=== PATIENT | male | born 1975 | race Two or more races ===

== ENCOUNTER 2023-04-26 13:04 | Outpatient (CLI) | payer OTHER | END 2023-04-26 13:19 | disposition home or self-care (01) | LOC: SONOGRAMA 13:04 | PROVIDERS: ATTEND Specialist | DX: R22.31 Localized swelling, mass and lump, right upper limb (principal) ==

== ENCOUNTER 2023-05-03 12:19 | Outpatient (CLI) | payer OTHER | END 2023-05-03 12:21 | disposition home or self-care (01) | LOC: SONOGRAMA 12:19 | PROVIDERS: ATTEND Pathology Anatomic Pathology & Clinical Pathology | DX: D47.Z9 Other specified neoplasms of uncertain behavior of lymphoid, hematopoietic and related tissue (principal) ==

== ENCOUNTER 2023-06-02 09:23 | Outpatient (CLI) | payer OTHER ==
[2023-06-02 10:27] LABS: HEMATOCRIT 44.7 % (39.0-48.0); HEMOGLOBIN 14.5 g/dL (13-16.00); MEAN CELL VOLUME 83.3 fL (80.0-100.00); MEAN CORPUSCULAR HGB CONC 32.4 g/dl (32.0-36.0); PLATELET COUNT 253 K/uL (150-450); RED BLOOD COUNT 5.36 M/uL (4.00-6.00); RED CELL DISTRIBUTION WIDTH 15.5 % (11.5-14.5)
[2023-06-02 10:36] LABS: ERYTHROCYTE SEDIMENTATION RATE 1 mm/hr
[2023-06-02 11:36] LABS: ALBUMIN 3.8 gm/dL (3.4-5.0); ALKALINE PHOSPHATASE 40 U/L (50-136); ALT/SGPT 27 U/L (12-78); AST/SGOT 10 U/L (15-37); BILIRUBIN TOTAL 0.62 mg/dL (0.3-1.2); BLOOD UREA NITROGEN 15 mg/dL (7-18); BUN CREA RATIO 13 (7.0-25.0); CALCIUM 9.5 mg/dL (8.5-10.1); CARBON DIOXIDE 32 mEq/L (21-32); CHLORIDE 104 mmol/L (98-107); CREATININE SERUM 1.13 mg/dL (0.70-1.30); GFR 69.26; GLOBULINA 3.2 G/DL (2.4-3.5); GLUCOSE FASTING 104 mg/dL (65-100); OSMOLALITY SERUM 277 MOSM/KG (275-295); POTASSIUM 4.24 mEq/L (3.5-5.1); SODIUM 138 mmol/L (136-145)
== END 2023-06-02 09:29 | disposition home or self-care (01) ==
LOC: LAB 09:23
PROVIDERS: ATTEND Internal Medicine Hematology & Oncology
DX: D64.9 Anemia, unspecified (principal); C88.8 Other malignant immunoproliferative diseases; D70.8 Other neutropenia; R74.01 Elevation of levels of liver transaminase levels

== ENCOUNTER → 2023-06-21 08:35 | Outpatient (CLI) | payer OTHER ==
[2023-06-21 09:23] LABS: HEMATOCRIT 27.6 % (39.0-48.0); MEAN CELL VOLUME 80.7 fL (80.0-100.00); MEAN CORPUSCULAR HGB CONC 32.7 g/dl (32.0-36.0); PLATELET COUNT 418 K/uL (150-450); RED BLOOD COUNT 3.42 M/uL (4.00-6.00); RED CELL DISTRIBUTION WIDTH 15.8 % (11.5-14.5)
[2023-06-21 09:25] LABS: MEAN CORPUSCULAR HEMOGLOBIN 26.3 pg (27.00-32.0)
== END | disposition home or self-care (01) ==
LOC: LAB 08:35
PROVIDERS: ATTEND Internal Medicine Hematology & Oncology
DX: D61.82 Myelophthisis (principal)

== ENCOUNTER 2023-06-22 07:58 | Outpatient (CLI) | payer OTHER | END 2023-06-22 08:04 | disposition home or self-care (01) | LOC: NUCLEAR 07:58 | PROVIDERS: ATTEND Internal Medicine Hematology & Oncology | DX: C83.04 Small cell B-cell lymphoma, lymph nodes of axilla and upper limb (principal); C88.8 Other malignant immunoproliferative diseases ==

== ENCOUNTER → 2023-07-13 08:41 | Outpatient (CLI) | payer OTHER ==
[2023-07-13 10:35] LABS: PH,URINE 5.5 (5.0-8.0); URINE APPEARANCE Clear; URINE BILIRRUBIN Negative (NEGATIVE); URINE BLOOD Negative; URINE COLOR Yellow; URINE GLUCOSE Negative (NEGATIVE); URINE LEUKOCYTE Negative; URINE NITRATE Negative; URINE PROTEIN Negative (NEGATIVE); URINE UROBILINOGEN 0.2 E.U./dl
[2023-07-13 10:43] LABS: URINE BACTERIA 6.2 uL (0.0-1933); URINE WBC 6.8 uL (0.0-23.2)
[2023-07-13 10:44] LABS: HEMATOCRIT 33.1 % (39.0-48.0); HEMOGLOBIN 10.4 g/dL (13-16.00); MEAN CELL VOLUME 76.2 fL (80.0-100.00); MEAN CORPUSCULAR HEMOGLOBIN 23.9 pg (27.00-32.0); MEAN CORPUSCULAR HGB CONC 31.4 g/dl (32.0-36.0); PLATELET COUNT 380 K/uL (150-450); RED BLOOD COUNT 4.34 M/uL (4.00-6.00); RED CELL DISTRIBUTION WIDTH 16.7 % (11.5-14.5)
[2023-07-13 11:15] LABS: INR 1.04; PARTIAL THROMBOPLASTIN TIME 26.3 SECONDS (22.0-34.0); PROTHROMBIN TIME 10.9 SECONDS (9.0-11.5)
[2023-07-13 11:16] LABS: URINE EPITHELIAL CELLS 0.9 uL (0.0-38.8); URINE RBC 0.1 uL (0.0-20.8)
[2023-07-13 11:22] LABS: ALBUMIN 3.9 gm/dL (3.4-5.0); BILIRUBIN TOTAL 0.56 mg/dL (0.3-1.2); CALCIUM 9.2 mg/dL (8.5-10.1); CREATININE SERUM 1.17 mg/dL (0.70-1.30); GFR 66.54; GLOBULINA 3.4 G/DL (2.4-3.5); POTASSIUM 4.44 mEq/L (3.5-5.1); TOTAL PROTEIN 7.3 gm/dL (6.4-8.2)
== END | disposition home or self-care (01) ==
LOC: LAB 08:41
DX: J20.9 Acute bronchitis, unspecified (principal); I10 Essential (primary) hypertension; Z13.0 Encounter for screening for diseases of the blood and blood-forming organs and certain disorders involving the immune mechanism

== ENCOUNTER 2023-07-13 10:06 | Outpatient (CLI) | payer OTHER | END 2023-07-13 10:10 | disposition home or self-care (01) | LOC: RAD 10:06 | DX: I10 Essential (primary) hypertension (principal) ==

== ENCOUNTER 2023-07-20 06:49 | Day surgery (SDC) | payer OTHER ==
[~2023-07-20 06:49] MED LIST: COZAAR50 MG PO
== END 2023-07-20 15:45 | disposition home or self-care (01) ==
LOC: CIR.AMB 06:49
PROVIDERS: ATTEND Specialist
DX: D47.Z2 Castleman disease (principal); R59.0 Localized enlarged lymph nodes; D48.7 Neoplasm of uncertain behavior of other specified sites; I10 Essential (primary) hypertension; Z20.822 Contact with and (suspected) exposure to COVID-19

== ENCOUNTER 2025-04-20 10:39 | Outpatient (CLI) | payer OTHER ==
[~2025-04-20 10:39] MED LIST changes: +DICLOFENAC POTA50 MG PO
== END 2025-04-20 10:40 | disposition home or self-care (01) ==
LOC: SONOGRAMA 10:39
DX: M67.819 Other specified disorders of synovium and tendon, unspecified shoulder (principal); M25.512 Pain in left shoulder